=== PATIENT | male | born 1935 | race Caucasian/White ===

== ENCOUNTER 2021-03-25 05:29 | Day surgery (SDC) | payer OTHER, MEDICARE ==
[2021-03-24 13:58] VITALS: BMI 33.7
[~2021-03-25 05:29] MED LIST: HEPARIN NA (PORCINE) 5,000 UNITS/ML 1ML VIAL SQ ONE; LIDOCAINE HCL 1%, 10 MG/ML (20ML VIAL) INF ONE
[2021-03-25] MEDS ORDERED: LIDOCAINE HCL 1%, 10 MG/ML (20ML VIAL) ONE (07:18)
[2021-03-25] MEDS ORDERED: HEPARIN NA (PORCINE) 5,000 UNITS/ML 1ML VIAL ONE (07:18)
[2021-03-25] MEDS ORDERED: LIDOCAINE HCL 1%, 10 MG/ML (20ML VIAL) INF ONE ×2 (08:45)
[2021-03-25] MEDS ORDERED: ceFAZolin 2 GRAM PREMIX BAG IVPB ONE ×2 (08:45→09:00)
[2021-03-25] MEDS ORDERED: HEPARIN NA (PORCINE) 5,000 UNITS/ML 1ML VIAL SQ ONE (08:45)
[2021-03-25] MEDS ORDERED: PROPOFOL 20 ML ONE (08:52)
[2021-03-25] MEDS ORDERED: SUCCINYLCHOLINE CHLORIDE 200 MG/10 ML SYRINGE ONE (08:52)
[2021-03-25] MEDS ORDERED: MIDAZOLAM HCL 2 MG/2 ML SINGLE DOSE VIAL ONE (08:52)
[2021-03-25] MEDS ORDERED: ceFAZolin SODIUM 1 GM VIAL ONE (08:53)
[2021-03-25] MEDS ORDERED: IOHEXOL 300 MG/ML INFUS..BTL IV ONE (09:05)
[2021-03-25] MEDS ORDERED: ONDANSETRON 4 MG/2 ML VIAL IVPUSH PRN (10:47)
[2021-03-25] MEDS ORDERED: oxyCODONE HCL 5 MG TABLET PO PRN (10:47)
[2021-03-25] MEDS ORDERED: LACTATED RINGERS SOLUTION 1,000 ML IV SCH (11:00)
[2021-03-25 12:51] VITALS: BP 134/86; PULSE 84; TEMP 97.7
== END 2021-03-25 12:45 | disposition home or self-care (01) ==
LOC: JASU-SURG 05:29
PROVIDERS: ATTEND Surgery Vascular Surgery
PROC: B41DYZZ Fluoroscopy of Aorta and Bilateral Lower Extremity Arteries using Other Contrast (ICD-10-PCS; principal; 2021-03-25 08:30)
DX: E11.621 Type 2 diabetes mellitus with foot ulcer (principal); Z79.4 Long term (current) use of insulin; I70.202 Unspecified atherosclerosis of native arteries of extremities, left leg; L97.429 Non-pressure chronic ulcer of left heel and midfoot with unspecified severity
CPT/HCPCS: 76000-TC-FY; 82962; 94760; J1644

== ENCOUNTER 2021-05-31 18:26 | Inpatient (IN) | payer OTHER, MEDICARE ==
[2021-05-31 20:09] LABS: BASO % 0.5 % (0-2.0); EOS % 1.1 % (0-4.5); HEMATOCRIT 35.8 % (35.4-49); HEMOGLOBIN 11.7 GM/dL (11.7-16.9); LYMPH % 11.4 % (8-40); MCH 27.5 pg (25.7-33.7); MCHC 32.8 g/dl (32.0-35.9); MEAN PLT VOLUME 7.1 fl (7.5-11.1); PLATELET COUNT 164 10^3/uL (134-434); RBC 4.26 M/mm3 (4.00-5.60); RDW 16.7 % (11.9-15.9); WHITE BLOOD COUNT 6.9 K/mm3 (4.0-10.0)
[2021-05-31 20:24] LABS: BLOOD UREA NITROGEN 63.6 mg/dL (7-18); CALCIUM 9.1 mg/dL (8.5-10.1); MAGNESIUM 2.3 mg/dL (1.8-2.4)
[2021-05-31 20:25] LABS: ALBUMIN 3.1 g/dl (3.4-5.0)
[2021-05-31 20:27] LABS: CREATININE 1.9 mg/dL (0.55-1.3)
[2021-05-31 20:29] LABS: BILIRUBIN,TOTAL 0.8 mg/dL (0.2-1); TOT PROT 7.4 g/dl (6.4-8.2)
[2021-05-31] MEDS ORDERED: ASPIRIN 81 MG CHEWABLE TABLETS PO ONE (20:45)
[2021-05-31] MEDS ORDERED: DEXTROSE 5%-LACTATED RINGERS 1,000 ML IV SCH (20:45)
[2021-05-31] MEDS ORDERED: ASPIRIN 81 MG CHEWABLE TABLETS ONE (20:49)
[2021-05-31 21:13] LABS: BLOOD UREA NITROGEN 60.8 mg/dL (7-18); CALCIUM 8.6 mg/dL (8.5-10.1); MAGNESIUM 2.2 mg/dL (1.8-2.4)
[2021-05-31 21:18] LABS: BILIRUBIN,TOTAL 0.7 mg/dL (0.2-1); CREATININE 1.9 mg/dL (0.55-1.3); TOT PROT 7.1 g/dl (6.4-8.2)
[2021-05-31 21:40] LABS: INR 1.34 (0.83-1.09); PROTHROMBIN TIME (PATIENT) 15.5 SEC (9.7-13.0)
[2021-05-31 21:43] LABS: ACTIVATED PTT 32.9 SECONDS (25.2-36.5)
[2021-05-31] MEDS ORDERED: NYSTATIN 100000 UNIT/GM TOPICAL OINTMENT 15 GM TUBE TP SCH (22:00)
[2021-05-31] MEDS ORDERED: HEPARIN NA (PORCINE) 5,000 UNITS/ML 1ML VIAL IVPUSH PRN ×2 (22:01)
[2021-05-31] MEDS ORDERED: FUROSEMIDE 40 MG/4 ML INJECTABLE VIAL IVPUSH ONE (22:06)
[2021-05-31] MEDS ORDERED: NYSTATIN 100000 UNIT/GM TOPICAL OINTMENT 15 GM TUBE TP ONE (22:18)
[2021-05-31] MEDS ORDERED: HEPARIN - 25,000 UNIT in SODIUM CHLORIDE 495 ML IV SCH (22:30)
[2021-05-31] MEDS ORDERED: FUROSEMIDE 40 MG/4 ML INJECTABLE VIAL ONE (22:36)
[2021-05-31 23:36] LABS: N-TERMINAL BNP 16191.6 pg/ml (5-450)
[2021-05-31] MEDS ORDERED: ASCORBIC ACID 500 MG TABLET (FP) ONE (23:38)
[2021-05-31] MEDS: ASCORBIC ACID 500 MG TABLET (FP) PO SCH (23:44)
[2021-05-31] MEDS: NYSTATIN 100000 UNIT/GM TOPICAL OINTMENT 15 GM TUBE TP SCH (23:44)
[2021-05-31] MEDS: INSULIN SLIDING SCALE (NOVOLOG) 1 VIAL SQ SCH (23:44)
[2021-05-31] MEDS: PANTOPRAZOLE 40 MG TABLET PO SCH (23:51)
[2021-06-01 03:18] LABS: EPI CELLS 4 /uL (0-25.1); HYALINE CASTS 3 /uL (0-3.1); URINE APPEARANCE CLEAR; URINE BACTERIA 1 /uL (0-1359); URINE BILIRUBIN NEGATIVE (NEGATIVE); URINE COLOR YELLOW; URINE GLUCOSE (UA) NEGATIVE (NEGATIVE); URINE KETONE NEGATIVE (NEGATIVE); URINE LEUK ESTERASE NEGATIVE (NEGATIVE); URINE NITRITE NEGATIVE (NEGATIVE); URINE PROTEIN 2+ (NEGATIVE); URINE RBC 24 /uL (0-23.9); URINE WBC 6 /uL (0-25.8)
[2021-06-01 04:35] VITALS: BMI 33.7
[2021-06-01] MEDS: INSULIN SLIDING SCALE (NOVOLOG) 1 VIAL SQ SCH ×3 (06:08→17:01)
[2021-06-01 07:38] LABS: BASO % 0.5 % (0-2.0); EOS % 1.9 % (0-4.5); HEMATOCRIT 34.8 % (35.4-49); HEMOGLOBIN 11.2 GM/dL (11.7-16.9); LYMPH % 16.5 % (8-40); MCH 27.1 pg (25.7-33.7); MEAN CELL VOLUME 84.7 fl (80-96); MEAN PLT VOLUME 7.7 fl (7.5-11.1); MONO % 10.4 % (3.8-10.2); NEUT % 70.7 % (42.8-82.8); PLATELET COUNT 158 10^3/uL (134-434); RBC 4.11 M/mm3 (4.00-5.60); RDW 16.8 % (11.9-15.9)
[2021-06-01 08:03] LABS: CALCIUM 8.3 mg/dL (8.5-10.1)
[2021-06-01 08:04] LABS: BLOOD UREA NITROGEN 58.2 mg/dL (7-18)
[2021-06-01] MEDS: ZINC SULFATE 220 MG CAPSULE (FP) PO SCH (09:26)
[2021-06-01] MEDS: LOSARTAN POTASSIUM 50 MG TABLET PO SCH (09:26)
[2021-06-01] MEDS: ASCORBIC ACID 500 MG TABLET (FP) PO SCH ×2 (09:26→21:09)
[2021-06-01] MEDS: PANTOPRAZOLE 40 MG TABLET PO SCH (09:27)
[2021-06-01] MEDS: ASPIRIN COATED 81 MG TABLET.EC PO SCH (09:27)
[2021-06-01] MEDS: INSULIN (NOVOLOG MIX 70/30) 100 UNITS/ML MDV SQ SCH ×2 (09:38→21:51)
[2021-06-01] MEDS: FUROSEMIDE 40 MG/4 ML INJECTABLE VIAL IVPUSH SCH (13:45)
[2021-06-01] MEDS: NYSTATIN 100000 UNIT/GM TOPICAL OINTMENT 15 GM TUBE TP SCH ×2 (16:53→21:47)
[2021-06-01] MEDS: CHOLECALCIFEROL (VIT D3) 5000 UNITS (125 MCG) CAP PO SCH (16:57)
[2021-06-01] MEDS: VITAMIN A 10,000 UNITS (3000 MCG) CAPSULE PO SCH (16:57)
[2021-06-01] MEDS: BACITRACIN 15 GM TUBE TOPICAL OINTMENT TP SCH (21:07)
[2021-06-01] MEDS: ATORVASTATIN CA 10 MG TABLET (FP) PO SCH (21:09)
[2021-06-01] MEDS: DOCUSATE SODIUM 100 MG CAPSULE (FP) PO SCH (21:10)
[2021-06-02] MEDS: INSULIN SLIDING SCALE (NOVOLOG) 1 VIAL SQ SCH ×3 (06:35→16:55)
[2021-06-02 07:21] LABS: BASO % 0.8 % (0-2.0); EOS % 2.2 % (0-4.5); HEMATOCRIT 35.1 % (35.4-49); HEMOGLOBIN 11.2 GM/dL (11.7-16.9); MCH 27.1 pg (25.7-33.7); MCHC 31.8 g/dl (32.0-35.9); MEAN PLT VOLUME 7.6 fl (7.5-11.1); MONO % 11.8 % (3.8-10.2); NEUT % 68.2 % (42.8-82.8); PLATELET COUNT 154 10^3/uL (134-434); RBC 4.12 M/mm3 (4.00-5.60); RDW 16.7 % (11.9-15.9); WHITE BLOOD COUNT 6.5 K/mm3 (4.0-10.0)
[2021-06-02 07:36] LABS: CHLORIDE 109 mmol/L (98-107); SODIUM 140 mmol/L (136-145)
[2021-06-02 07:42] LABS: CALCIUM 8.5 mg/dL (8.5-10.1)
[2021-06-02 07:43] LABS: ANION GAP 11 MMOL/L (8-16); BLOOD UREA NITROGEN 61.8 mg/dL (7-18); CO2 20 mmol/L (21-32); GLUCOSE,RANDOM 86 mg/dL (74-106)
[2021-06-02 07:46] LABS: CREATININE 2.1 mg/dL (0.55-1.3)
[2021-06-02] MEDS: INSULIN (NOVOLOG MIX 70/30) 100 UNITS/ML MDV SQ SCH ×3 (09:21→22:00)
[2021-06-02] MEDS: BACITRACIN 15 GM TUBE TOPICAL OINTMENT TP SCH (09:22)
[2021-06-02] MEDS: LOSARTAN POTASSIUM 50 MG TABLET PO SCH (09:22)
[2021-06-02] MEDS: ZINC SULFATE 220 MG CAPSULE (FP) PO SCH (09:22)
[2021-06-02] MEDS: ASPIRIN COATED 81 MG TABLET.EC PO SCH (09:22)
[2021-06-02] MEDS: VITAMIN A 10,000 UNITS (3000 MCG) CAPSULE PO SCH (09:22)
[2021-06-02] MEDS: PANTOPRAZOLE 40 MG TABLET PO SCH (09:22)
[2021-06-02] MEDS: ASCORBIC ACID 500 MG TABLET (FP) PO SCH ×2 (09:22→21:57)
[2021-06-02] MEDS: CHOLECALCIFEROL (VIT D3) 5000 UNITS (125 MCG) CAP PO SCH (09:23)
[2021-06-02] MEDS: FUROSEMIDE 40 MG/4 ML INJECTABLE VIAL IVPUSH SCH (09:23)
[2021-06-02] MEDS: NYSTATIN 100000 UNIT/GM TOPICAL OINTMENT 15 GM TUBE TP SCH ×2 (09:23→21:57)
[2021-06-02] MEDS: ATORVASTATIN CA 10 MG TABLET (FP) PO SCH (21:55)
[2021-06-02] MEDS: DOCUSATE SODIUM 100 MG CAPSULE (FP) PO SCH (21:55)
[2021-06-03] MEDS: INSULIN SLIDING SCALE (NOVOLOG) 1 VIAL SQ SCH (06:11)
[2021-06-03 07:33] LABS: BASO % 0.5 % (0-2.0); CHLORIDE 109 mmol/L (98-107); EOS % 1.5 % (0-4.5); HEMATOCRIT 36.3 % (35.4-49); HEMOGLOBIN 11.5 GM/dL (11.7-16.9); MCHC 31.7 g/dl (32.0-35.9); MEAN PLT VOLUME 7.4 fl (7.5-11.1); MONO % 9.3 % (3.8-10.2); NEUT % 74.7 % (42.8-82.8); PLATELET COUNT 160 10^3/uL (134-434); RBC 4.27 M/mm3 (4.00-5.60); RDW 16.4 % (11.9-15.9); SODIUM 140 mmol/L (136-145)
[2021-06-03 07:37] LABS: ANION GAP 10 MMOL/L (8-16); CALCIUM 8.5 mg/dL (8.5-10.1); CO2 21 mmol/L (21-32)
[2021-06-03 07:38] LABS: GLUCOSE,RANDOM 119 mg/dL (74-106)
[2021-06-03 07:41] LABS: CREATININE 2.3 mg/dL (0.55-1.3)
[2021-06-03] MEDS: ASPIRIN COATED 81 MG TABLET.EC PO SCH (09:21)
[2021-06-03] MEDS: ZINC SULFATE 220 MG CAPSULE (FP) PO SCH (09:21)
[2021-06-03] MEDS: VITAMIN A 10,000 UNITS (3000 MCG) CAPSULE PO SCH (09:21)
[2021-06-03] MEDS: FUROSEMIDE 40 MG/4 ML INJECTABLE VIAL IVPUSH SCH (09:22)
[2021-06-03] MEDS: LOSARTAN POTASSIUM 50 MG TABLET PO SCH (09:22)
[2021-06-03] MEDS: ASCORBIC ACID 500 MG TABLET (FP) PO SCH (09:22)
[2021-06-03] MEDS: PANTOPRAZOLE 40 MG TABLET PO SCH (09:22)
[2021-06-03] MEDS: CHOLECALCIFEROL (VIT D3) 5000 UNITS (125 MCG) CAP PO SCH (09:23)
[2021-06-03] MEDS: BACITRACIN 15 GM TUBE TOPICAL OINTMENT TP SCH (09:43)
[2021-06-03] MEDS: NYSTATIN 100000 UNIT/GM TOPICAL OINTMENT 15 GM TUBE TP SCH (09:44)
[2021-06-03] MEDS: DOCUSATE SODIUM 100 MG CAPSULE (FP) PO SCH (21:57)
[2021-06-03] MEDS: ATORVASTATIN CA 10 MG TABLET (FP) PO SCH (21:58)
[2021-06-04 07:45] LABS: BASO % 0.4 % (0-2.0); EOS % 2.3 % (0-4.5); HEMATOCRIT 33.8 % (35.4-49); HEMOGLOBIN 11.3 GM/dL (11.7-16.9); LYMPH % 16.2 % (8-40); MCH 27.9 pg (25.7-33.7); MCHC 33.5 g/dl (32.0-35.9); MEAN CELL VOLUME 83.2 fl (80-96); MEAN PLT VOLUME 7.1 fl (7.5-11.1); MONO % 9.9 % (3.8-10.2); NEUT % 71.2 % (42.8-82.8); PLATELET COUNT 147 10^3/uL (134-434); RBC 4.06 M/mm3 (4.00-5.60); RDW 16.7 % (11.9-15.9); WHITE BLOOD COUNT 6.5 K/mm3 (4.0-10.0)
[2021-06-04 08:02] LABS: CALCIUM 8.4 mg/dL (8.5-10.1)
[2021-06-04] MEDS: ZINC SULFATE 220 MG CAPSULE (FP) PO SCH (09:10)
[2021-06-04] MEDS: PANTOPRAZOLE 40 MG TABLET PO SCH (09:10)
[2021-06-04] MEDS: FUROSEMIDE 40 MG/4 ML INJECTABLE VIAL IVPUSH SCH (09:12)
[2021-06-04] MEDS: ASPIRIN COATED 81 MG TABLET.EC PO SCH (09:13)
[2021-06-04] MEDS: ASCORBIC ACID 500 MG TABLET (FP) PO SCH ×2 (09:14→22:56)
[2021-06-04] MEDS: LOSARTAN POTASSIUM 50 MG TABLET PO SCH (09:15)
[2021-06-04] MEDS: BACITRACIN 15 GM TUBE TOPICAL OINTMENT TP SCH (09:15)
[2021-06-04] MEDS ORDERED: REGADENOSON 0.4 MG/5 ML PRE-FILLED SYRINGE IVPUSH ONE ×2 (10:00→11:42)
[2021-06-04] MEDS: NYSTATIN 100000 UNIT/GM TOPICAL OINTMENT 15 GM TUBE TP SCH (10:28)
[2021-06-04] MEDS: VITAMIN A 10,000 UNITS (3000 MCG) CAPSULE PO SCH (10:29)
[2021-06-04] MEDS: CHOLECALCIFEROL (VIT D3) 5000 UNITS (125 MCG) CAP PO SCH (10:29)
[2021-06-04] MEDS: DOCUSATE SODIUM 100 MG CAPSULE (FP) PO SCH (22:00)
[2021-06-04] MEDS: ATORVASTATIN CA 10 MG TABLET (FP) PO SCH (22:00)
[2021-06-05] MEDS: NYSTATIN 100000 UNIT/GM TOPICAL OINTMENT 15 GM TUBE TP SCH ×3 (06:55→22:04)
[2021-06-05 07:43] LABS: CHLORIDE 108 mmol/L (98-107); SODIUM 140 mmol/L (136-145)
[2021-06-05 07:45] LABS: BASO % 0.7 % (0-2.0); EOS % 2.6 % (0-4.5); HEMATOCRIT 36.7 % (35.4-49); HEMOGLOBIN 11.5 GM/dL (11.7-16.9); LYMPH % 17.3 % (8-40); MCH 26.7 pg (25.7-33.7); MCHC 31.4 g/dl (32.0-35.9); MEAN CELL VOLUME 85.1 fl (80-96); MEAN PLT VOLUME 7.5 fl (7.5-11.1); MONO % 9.8 % (3.8-10.2); NEUT % 69.6 % (42.8-82.8); PLATELET COUNT 167 10^3/uL (134-434); RBC 4.32 M/mm3 (4.00-5.60); RDW 17.1 % (11.9-15.9); WHITE BLOOD COUNT 7.1 K/mm3 (4.0-10.0)
[2021-06-05 07:46] LABS: CALCIUM 8.8 mg/dL (8.5-10.1)
[2021-06-05 07:47] LABS: ANION GAP 8 MMOL/L (8-16); BLOOD UREA NITROGEN 65.1 mg/dL (7-18); CO2 25 mmol/L (21-32); GLUCOSE,RANDOM 119 mg/dL (74-106)
[2021-06-05] MEDS: PANTOPRAZOLE 40 MG TABLET PO SCH (09:17)
[2021-06-05] MEDS: ASPIRIN COATED 81 MG TABLET.EC PO SCH (09:17)
[2021-06-05] MEDS: ZINC SULFATE 220 MG CAPSULE (FP) PO SCH (09:18)
[2021-06-05] MEDS: LOSARTAN POTASSIUM 50 MG TABLET PO SCH (09:18)
[2021-06-05] MEDS: ASCORBIC ACID 500 MG TABLET (FP) PO SCH ×3 (09:18→22:03)
[2021-06-05] MEDS: VITAMIN A 10,000 UNITS (3000 MCG) CAPSULE PO SCH (09:18)
[2021-06-05] MEDS: FUROSEMIDE 40 MG/4 ML INJECTABLE VIAL IVPUSH SCH (09:19)
[2021-06-05] MEDS: BACITRACIN 15 GM TUBE TOPICAL OINTMENT TP SCH (09:19)
[2021-06-05] MEDS: CHOLECALCIFEROL (VIT D3) 5000 UNITS (125 MCG) CAP PO SCH (11:25)
[2021-06-05] MEDS: DOCUSATE SODIUM 100 MG CAPSULE (FP) PO SCH (22:04)
[2021-06-05] MEDS: ATORVASTATIN CA 10 MG TABLET (FP) PO SCH (22:06)
[2021-06-06 07:26] LABS: BASO % 0.5 % (0-2.0); EOS % 2.4 % (0-4.5); HEMATOCRIT 37.9 % (35.4-49); LYMPH % 12.9 % (8-40); MCHC 31.6 g/dl (32.0-35.9); MEAN CELL VOLUME 85.4 fl (80-96); MEAN PLT VOLUME 7.4 fl (7.5-11.1); NEUT % 76.2 % (42.8-82.8); PLATELET COUNT 164 10^3/uL (134-434); RBC 4.43 M/mm3 (4.00-5.60); RDW 17.1 % (11.9-15.9); WHITE BLOOD COUNT 6.8 K/mm3 (4.0-10.0)
[2021-06-06 07:38] LABS: CHLORIDE 106 mmol/L (98-107); SODIUM 141 mmol/L (136-145)
[2021-06-06 07:41] VITALS: TEMP 97.8
[2021-06-06 07:41] LABS: CALCIUM 8.6 mg/dL (8.5-10.1)
[2021-06-06 07:42] LABS: ANION GAP 7 MMOL/L (8-16); BLOOD UREA NITROGEN 59.3 mg/dL (7-18); CO2 28 mmol/L (21-32); GLUCOSE,RANDOM 140 mg/dL (74-106)
[2021-06-06] MEDS: ASPIRIN COATED 81 MG TABLET.EC PO SCH (09:19)
[2021-06-06] MEDS: PANTOPRAZOLE 40 MG TABLET PO SCH (09:19)
[2021-06-06] MEDS: LOSARTAN POTASSIUM 50 MG TABLET PO SCH (09:19)
[2021-06-06] MEDS: ASCORBIC ACID 500 MG TABLET (FP) PO SCH (09:20)
[2021-06-06] MEDS: ZINC SULFATE 220 MG CAPSULE (FP) PO SCH (09:21)
[2021-06-06] MEDS: CHOLECALCIFEROL (VIT D3) 5000 UNITS (125 MCG) CAP PO SCH (09:22)
[2021-06-06] MEDS: BACITRACIN 15 GM TUBE TOPICAL OINTMENT TP SCH (09:22)
[2021-06-06] MEDS: VITAMIN A 10,000 UNITS (3000 MCG) CAPSULE PO SCH (09:23)
[2021-06-06] MEDS: NYSTATIN 100000 UNIT/GM TOPICAL OINTMENT 15 GM TUBE TP SCH (09:23)
[2021-06-06] MEDS ORDERED: FUROSEMIDE 40 MG TABLET (FP) PO SCH (10:00)
[2021-06-06 16:05] VITALS: BP 126/74; PULSE 82
== END 2021-06-06 18:55 | disposition short-term general hospital (02) | DRG 291 ==
LOC: JER 18:26 → JERBED 22:06 → J4W 06-01 04:05
PROVIDERS: ADMIT Internal Medicine; ATTEND Internal Medicine
DX: I13.0 Hypertensive heart and chronic kidney disease with heart failure and stage 1 through stage 4 chronic kidney disease, or unspecified chronic kidney disease (principal); I50.23 Acute on chronic systolic (congestive) heart failure; N17.9 Acute kidney failure, unspecified; I24.8 Other forms of acute ischemic heart disease; E11.22 Type 2 diabetes mellitus with diabetic chronic kidney disease; E78.5 Hyperlipidemia, unspecified; M62.81 Muscle weakness (generalized); N18.9 Chronic kidney disease, unspecified; I27.20 Pulmonary hypertension, unspecified; E11.51 Type 2 diabetes mellitus with diabetic peripheral angiopathy without gangrene; L97.529 Non-pressure chronic ulcer of other part of left foot with unspecified severity; E88.09 Other disorders of plasma-protein metabolism, not elsewhere classified
CPT/HCPCS: 36415; 71046-TC-FY; 78452-TC; 80048; 80053; 81003; 82272; 82550; 82962; 83036; 83735; 83880; 84484; 85025; 85379; 85610; 85730; 87086; 93005; 93010; 93017; 93970-TC; 97116-GP; 97162-GP; 99291; A9502; C9803; J1644; J2785; U0003; U0005